=== PATIENT | female | born 1975 | race Caucasian/White ===

== ENCOUNTER → 2017-01-07 | Outpatient (CLI) | payer OTHER ==
--- NOTE | 2017-01-07 17:23 | MA ---
Screening Digital Mammogram With iCAD Analysis Clinical Indications: Routine screening. Technique: Standard cephalocaudal projections are obtained. Digital breast tomosynthesis was performe d in the MLO projection with reconstruction at 1.0 mm slice thickness and composite MLO views reconst ructed. This examination is processed by the iCAD computer aided detection system. Comparison: December 2015, November 2015, October 2014, October 2013. Breast density: Type C: Heterogeneously dense. Findings: CAD was reviewed. No masses, suspicious calcifications or secondary signs of malignancy are seen. There has been no significant change in the appearance of either breast. Impression: Negative mammogram. BI-RADS 1. Recommendation: Routine mammographic screening in one year as long as physical examination is negativ e in this patient with heterogeneously dense breast parenchyma. [facility] will send a result letter to the patient. Negative mammography should not preclude additional workup of a clinically suspicious finding. The patient's information is entered into a reminder system with a target due date for her next mammo gram.
== END ==
LOC: FIMAGING 14:00
DX: Z12.31 Encounter for screening mammogram for malignant neoplasm of breast (principal)
CPT/HCPCS: G0202

== ENCOUNTER 2017-03-13 08:00 | Emergency (ER) | payer OTHER ==
--- NOTE | 2017-03-13 08:14 | EDPHY ---
H & P Time Seen by Provider: 03/13/17 08:13 HPI/ROS: Chief complaint. Calf pain HPI. 42-year-old female presents emergency department with right calf pain for 3 days. She had increased her work out the night before with squats. The left calf however is not painful. She has been using symptomatic care including ice elevation and anti-inflammatories with inadequate relief. There is no significant swelling. She has no chest symptoms or trouble breathing. No history of DVT. No recent prolonged travel or immobilization ROS Constitutional. no fever/chills, no weakness Eyes. no problems with vision ENT. no sore throat, no nasal drainage Cardiovascular. no chest pain Respiratory. no shortness of breath, no cough Abdominal. no abdominal pain, no nausea/vomiting, no diarrhea . no problems urinating MS. Right calf pain Skin. no rash Lymph. no swollen glands Neuro. no headache, no dizziness, no difficulty walking or with speech Past Medical/Surgical History: Appendectomy Social History: , nonsmoker, no alcohol Smoking Status: Never smoked Physical Exam: General Appearance: Alert well-developed female mild distress vital signs are stable Eyes: Pupils equal and round no pallor or injection. ENT, Mouth: Mucous membranes are moist. Respiratory: There are no retractions, lungs are clear to auscultation. Cardiovascular: Regular rate and rhythm. Gastrointestinal: Abdomen is soft and nontender, no masses, bowel sounds normal. Neurological: Awake and alert, sensory and motor exams grossly normal. Skin: Warm and dry, no rashes. Musculoskeletal: Neck is supple nontender. Extremities tenderness along the posterior right calf. No obvious swelling. Distal motor vascular sensitivity is intact Psychiatric: Patient is oriented X 3, there is no agitation. Constitutional: Initial Vital Signs Temperature (C) 36.8 C 03/13/17 08:01 Heart Rate 80 03/13/17 08:01 Respiratory Rate 14 03/13/17 08:01 Blood Pressure 143/85 H 03/13/17 08:01 O2 Sat (%) 97 03/13/17 08:01 O2 Delivery Mode Room Air Allergies/Adverse Reactions: Penicillins Allergy (Verified 01/11/10 19:46) Home Medications: Medication Instructions Recorded Rivaroxaban [Xarelto 15mg (*)] 15 mg PO BID #42 tab 03/13/17 Medical Decision Making - Diagnostics Imaging: Imaging Impressions Extremity Venous Study 03/13/17 08:24 Impression: Deep vein thrombosis is seen involving right posterior tibial veins. Results called and discussed with MARK BRAVO M.D. on 03/13/2017 at 9:47 Ultrasound reviewed by me and discussed with Dr. Dugan reveals DVT in the posterior tibial veins of the right leg Procedures: IV normal saline and hypercoagulation panel is obtained ED Course/Re-evaluation: Patient, her , and I discussed imaging results, treatment plan including criteria for return importance of follow-up further evaluation. They expressed understanding and agreement. We had a long discussion regarding Lovenox and Coumadin versus Xarelto. They preferred the Xarelto. Hyper coag panel is obtained. Xarelto is given in the ED Differential Diagnosis: I considered calf strain, muscle tear, DVT. The patient has a DVT on ultrasound - Data Points Laboratory Results: 03/13/17 03/13/17 10:55 10:55 PT 12.4 SEC SEC (12.0-15.0) INR 0.93 (0.83-1.16) APTT 25.1 SEC SEC (23.0-38.0) Fibrinogen 339 mg/dL mg/dL (214-456) D-Dimer 1.48 ug/mLFEU H ug/mLFEU (0.00-0.50) Protein C Activity Pending Protein S Activity Pending Antithrombin III Activ Pending Factor V Leiden Mutat Pending Factor V Leiden Interp Pending Fact V Leiden Review By Pending Anti-Cardiolipin IgG Ab Pending Anti-Cardiolipin IgM Ab Pending Medications Given: Discontinued Medications Rivaroxaban (Xarelto) [facility] Stop: 09/09/17 17:59 Last Admin: 03/13/17 11:16 Dose: 15 mg Departure - Departure Disposition: Home, Routine, Self-Care Clinical Impression: DVT (deep venous thrombosis) Qualifiers: DVT location: lower extremity Affected thrombotic vein of extremity: tibial Laterality: right Chronicity: acute Qualified Code(s): I82.441 - Acute embolism and thrombosis of right tibial vein Condition: Good Instructions: Deep Venous Thrombosis (ED) Additional Instructions: Elevate legs as much as possible next 2-3 days. Xarelto twice daily for the blood clot in your leg. Return for chest discomfort or trouble breathing. Walking is okay but no vigorous exercise for 1 week. Follow up with Dr. Doe next Thursday or Thursday Mark Bravo MD [phone] Referrals: Elvin Doe MD [Primary Care Provider] - As per Instructions Prescriptions: Rivaroxaban [Xarelto 15mg (*)] 15 mg PO BID #42 tab
[2017-03-13 11:20] LABS: INR 0.93 (0.83-1.16); PROTIME(PATIENT) 12.4 SEC (12.0-15.0)
[2017-03-13 11:21] LABS: APTT 25.1 SEC (23.0-38.0)
[2017-03-13 11:33] VITALS: BP 132/84; PULSE 67; RESP 16; TEMP 98.4; O2SAT 96
[2017-03-13] MEDS ORDERED: RIVAROXABAN 15 MG TAB PO SCH (18:00)
[2017-03-16 10:03] LABS: PROTEIN C ACTIVITY 125 % (70 - 150)
[2017-03-16 10:44] LABS: PROTEIN S ACTIVITY 118 % (50 - 160)
[2017-03-17 19:13] LABS: INTERPRETATION See Comments
== END 2017-03-13 11:32 | disposition home or self-care (01) ==
DX: I82.441 Acute embolism and thrombosis of right tibial vein (principal)
CPT/HCPCS: 81332-90; 81479-90; 85300-90; 85303-90; 85306-90; 86147-90

== ENCOUNTER → 2018-01-12 | Outpatient (CLI) | payer OTHER | LOC: FIMAGING 14:12 | PROVIDERS: ATTEND Internal Medicine | DX: Z12.31 Encounter for screening mammogram for malignant neoplasm of breast (principal) ==

== ENCOUNTER → 2019-02-04 | Outpatient (CLI) | payer OTHER | LOC: FIMAGING 14:16 | PROVIDERS: ATTEND Internal Medicine | DX: Z12.31 Encounter for screening mammogram for malignant neoplasm of breast (principal) ==